=== PATIENT | male | born 1940 | race Caucasian/White ===

== ENCOUNTER 2020-01-17 09:35 | Day surgery (SDC) | payer MEDICARE ==
[~2020-01-17] VITALS: Ht 182.9 cm; Wt 75.3 kg
[~2020-01-17 09:35] MED LIST: AMOCLA875 PO; HYDACE5325 PO; LORA1; NAPR500 PO; OMEP20ER; OMEP20ER PO; RANI150 PO; RXHYD5325 PO; SLEEPING PILL; Voltaren100 GM TP
--- NOTE | 2020-01-17 12:58 | NUR ---
Patient up to Ambulate independently. Gait steady. Discharge instructions reviewed with patient. Patient verbalizes understanding. Copy given to patient to take home. PT GIVEN SCROTAL SUPPORT AND ICE PACK FOR COMFORT. Discharged via wheelchair to private car for ride home WITH FAMILY
--- NOTE | 2020-01-20 07:27 | NUR ---
01/20/20 0727 Susie Shelley VERIFICATIONS: EDIT CHART.
== END 2020-01-17 22:41 | disposition home or self-care (01) ==
LOC: ORSCMMR 09:35 → ORD 12:15 → ORSCMMR 12:15
PROVIDERS: Surgery
PROC: 0YU60JZ Supplement Left Inguinal Region with Synthetic Substitute, Open Approach (ICD-10-PCS; principal; 2020-01-17 10:00)
DX: K40.90 Unilateral inguinal hernia, without obstruction or gangrene, not specified as recurrent (principal); E78.5 Hyperlipidemia, unspecified
CPT/HCPCS: C1781; J0690; J1100; J2250; J2405; J2704; J3010; J7120

== ENCOUNTER 2020-07-24 14:56 | Emergency (ER) | payer MEDICARE ==
[~2020-07-24] VITALS: Ht 182.9 cm; Wt 77.1 kg
[2020-07-24 16:32] LABS: BASOPHILS ABSOLUTE AUTO 0.06 K/mm3 (0.00-0.23); BASOPHILS PERCENT AUTO 1 % (0-2); EOSINOPHILS ABSOLUTE AUTO 0.22 K/mm3 (0.00-0.68); EOSINOPHILS PERCENT AUTO 3 % (0-6); Hematocrit 39.9 % (37.0-53.0); Hemoglobin 13.1 g/dL (13.5-17.5); IMMATURE GRAN ABSOLUTE AUTO 0.03 K/mm3 (0.00-0.10); IMMATURE GRAN PERCENT AUTO 0 % (0-1); LYMPHOCYTES ABSOLUTE AUTO 1.65 K/mm3 (0.84-5.20); LYMPHOCYTES PERCENT AUTO 20 % (21-46); MONOCYTES ABSOLUTE AUTO 0.77 K/mm3 (0.16-1.47); MONOCYTES PERCENT AUTO 10 % (4-13); Mean Corpuscular HGB 28.9 pg (26.0-34.0); Mean Corpuscular HGB Conc 32.8 g/dL (31.5-36.5); Mean Corpuscular Volume 88 fL (80-100); Mean Platelet Volume 8.5 fL (9.1-12.4); NEUTROPHILS ABSOLUTE AUTO 5.41 K/mm3 (1.96-9.15); NEUTROPHILS PERCENT AUTO 66 % (41-73); Platelet Count 231 K/mm3 (150-400); RDW Coefficient Variation 13.3 % (11.7-14.2); RDW Standard Deviation 43.1 fL (35.1-46.3); Red Blood Cell Count 4.53 M/mm3 (4.30-5.90); White Blood Cell Count 8.14 K/mm3 (4.00-11.30)
[2020-07-24 16:51] LABS: International Normalized Ratio 1.08; Prothrombin Time Results 11.5 Sec (9.7-11.5)
[2020-07-24 16:56] LABS: Alanine Aminotransfer (ALT/SGP 17 U/L (12-78); Albumin, Blood 3.9 g/dL (3.4-5.0); Albumin/Globulin Ratio 1.1 (0.8-1.8); Alk Phos 100 U/L (50-136); Anion Gap 9 mmol/L (6-16); Aspartate Aminotrans (AST/SGOT 16 U/L (12-37); Bilirubin, Total 0.5 mg/dL (0.1-1.0); Blood Urea Nitrogen 14 mg/dL (8-24); Bun/Creatinine Ratio 13.6 (12.0-20.0); CO2, Blood 26 mmol/L (21-32); Calcium, Blood 8.6 mg/dL (8.5-10.1); Chloride, Blood 110 mmol/L (98-108); Creatinine, Blood 1.03 mg/dL (0.60-1.20); Globulin, Blood 3.5 g/dL (2.2-4.0); Glomerular Filtration Rate >60 (60-); Glucose, Blood 94 mg/dL (70-99); Potassium, Blood 3.8 mmol/L (3.5-5.5); Sodium, Blood 145 mmol/L (136-145); Total Protein, Blood 7.4 g/dL (6.4-8.2)
== END 2020-07-24 22:10 | disposition home or self-care (01) ==
LOC: ER 14:56
PROVIDERS: Physician Assistant
DX: R20.2 Paresthesia of skin (principal); Z91.81 History of falling; K21.9 Gastro-esophageal reflux disease without esophagitis; Z87.891 Personal history of nicotine dependence; Z91.040 Latex allergy status; Z91.09 Other allergy status, other than to drugs and biological substances; Z91.030 Bee allergy status; Z79.899 Other long term (current) drug therapy
CPT/HCPCS: 70450; 80053; 85025; 85610; 93005; 93010; 99284-25

== ENCOUNTER → 2022-04-27 | Outpatient (CLI) | payer MEDICARE ==
[~2022-04-27] MED LIST changes: +ASPI81CH PO; +ATOR40TA PO; +Imdur30 MG PO; +METO25ER PO
[2022-04-27 16:44] LABS: Adenovirus F 40/41 Not Detected (NOT DETECT); Astrovirus Not Detected (NOT DETECT); Campylobacter Sp Not Detected (NOT DETECT); Cryptosporidium Not Detected (NOT DETECT); Cyclospora Cayetanensis Not Detected (NOT DETECT); E. Coli O157 Not Detected (NOT DETECT); Entamoeba Histolytica Not Detected (NOT DETECT); Enteroaggregative E. coli-EAEC Not Detected (NOT DETECT); Enteropathogenic E. coli-EPEC Not Detected (NOT DETECT); Enterotoxigenic E. coli-ETEC Not Detected (NOT DETECT); Giardia Lamblia Not Detected (NOT DETECT); Norovirus GI/GII Not Detected (NOT DETECT); Plesiomonas Shigelloides Not Detected (NOT DETECT); Rotavirus A Not Detected (NOT DETECT); Salmonella Sp Not Detected (NOT DETECT); Sapovirus Not Detected (NOT DETECT); Shiga Toxin-prod E. coli-STEC Not Detected (NOT DETECT); Shigella/Enteroin E. coli-EIEC Not Detected (NOT DETECT); Vibrio Cholerae Not Detected (NOT DETECT); Vibrio Sp Not Detected (NOT DETECT); Yersinia Enterocolitica Not Detected (NOT DETECT)
== END | disposition home or self-care (01) ==
LOC: LAB SHORT 08:00
PROVIDERS: Family Medicine
DX: R15.9 Full incontinence of feces (principal); R19.7 Diarrhea, unspecified
CPT/HCPCS: 87507

== ENCOUNTER 2022-08-27 15:48 | Inpatient (IN) | payer MEDICARE ==
[~2022-08-27] VITALS: Ht 182.9 cm; Wt 67.5 kg
[~2022-08-27 15:48] MED LIST changes: -METO25ER PO; +METO50ER PO
[2022-08-27 16:31] LABS: BASOPHILS ABSOLUTE AUTO 0.01 K/mm3 (0.00-0.23); BASOPHILS PERCENT AUTO 0 % (0-2); EOSINOPHILS ABSOLUTE AUTO 0.02 K/mm3 (0.00-0.68); EOSINOPHILS PERCENT AUTO 0 % (0-6); IMMATURE GRAN ABSOLUTE AUTO 0.24 K/mm3 (0.00-0.10); IMMATURE GRAN PERCENT AUTO 2 % (0-1); LYMPHOCYTES ABSOLUTE AUTO 1.47 K/mm3 (0.84-5.20); LYMPHOCYTES PERCENT AUTO 14 % (21-46); MONOCYTES ABSOLUTE AUTO 0.58 K/mm3 (0.16-1.47); MONOCYTES PERCENT AUTO 6 % (4-13); Mean Corpuscular HGB 25.8 pg (26.0-34.0); Mean Corpuscular HGB Conc 30.4 g/dL (31.5-36.5); Mean Corpuscular Volume 85 fL (80-100); Mean Platelet Volume 9.4 fL (9.1-12.4); NEUTROPHILS ABSOLUTE AUTO 8.11 K/mm3 (1.96-9.15); NEUTROPHILS PERCENT AUTO 78 % (41-73); Platelet Count 130 K/mm3 (150-400); RDW Coefficient Variation 16.3 % (11.7-14.2); Red Blood Cell Count 1.59 M/mm3 (4.30-5.90); White Blood Cell Count 10.43 K/mm3 (4.00-11.30)
[2022-08-27 16:36] LABS: Hematocrit 13.5 % (37.0-53.0); Hemoglobin 4.1 g/dL (13.5-17.5)
[2022-08-27 16:42] LABS: Albumin, Blood 2.2 g/dL (3.4-5.0); Albumin/Globulin Ratio 1.1 (0.8-1.8); Bilirubin, Total 0.2 mg/dL (0.1-1.0); Bun/Creatinine Ratio 71.4 (12.0-20.0); Calcium, Blood 7.5 mg/dL (8.5-10.1); Creatinine, Blood 1.19 mg/dL (0.60-1.20); Potassium, Blood 4.9 mmol/L (3.5-5.5); Total Protein, Blood 4.2 g/dL (6.4-8.2)
[2022-08-27 18:27] LABS: International Normalized Ratio 1.37; Prothrombin Time Results 14.1 Sec (9.7-11.5)
[2022-08-27 21:06] LABS: PCO2 Venous 22.8 mmHg (38-42)
[2022-08-27 21:07] LABS: Base Excess Venous -17.2 mmol/L
[2022-08-27 21:09] LABS: pH Blood Venous 7.25 (7.34-7.37)
[2022-08-27 21:24] LABS: BASOPHILS ABSOLUTE AUTO 0.01 K/mm3 (0.00-0.23); BASOPHILS PERCENT AUTO 0 % (0-2); EOSINOPHILS PERCENT AUTO 0 % (0-6); IMMATURE GRAN ABSOLUTE AUTO 0.22 K/mm3 (0.00-0.10); IMMATURE GRAN PERCENT AUTO 2 % (0-1); LYMPHOCYTES ABSOLUTE AUTO 0.94 K/mm3 (0.84-5.20); LYMPHOCYTES PERCENT AUTO 9 % (21-46); MONOCYTES ABSOLUTE AUTO 0.54 K/mm3 (0.16-1.47); MONOCYTES PERCENT AUTO 5 % (4-13); Mean Corpuscular HGB 26.5 pg (26.0-34.0); Mean Corpuscular HGB Conc 31.3 g/dL (31.5-36.5); Mean Corpuscular Volume 85 fL (80-100); Mean Platelet Volume 9.6 fL (9.1-12.4); NEUTROPHILS ABSOLUTE AUTO 9.11 K/mm3 (1.96-9.15); NEUTROPHILS PERCENT AUTO 84 % (41-73); Platelet Count 127 K/mm3 (150-400); RDW Coefficient Variation 16.8 % (11.7-14.2); RDW Standard Deviation 51.8 fL (35.1-46.3); Red Blood Cell Count 1.89 M/mm3 (4.30-5.90); White Blood Cell Count 10.82 K/mm3 (4.00-11.30)
[2022-08-27 23:59] LABS: BASOPHILS ABSOLUTE AUTO 0.01 K/mm3 (0.00-0.23); BASOPHILS PERCENT AUTO 0 % (0-2); EOSINOPHILS ABSOLUTE AUTO 0.01 K/mm3 (0.00-0.68); EOSINOPHILS PERCENT AUTO 0 % (0-6); Hematocrit 20.7 % (37.0-53.0); Hemoglobin 6.9 g/dL (13.5-17.5); IMMATURE GRAN ABSOLUTE AUTO 0.21 K/mm3 (0.00-0.10); IMMATURE GRAN PERCENT AUTO 2 % (0-1); LYMPHOCYTES ABSOLUTE AUTO 1.55 K/mm3 (0.84-5.20); LYMPHOCYTES PERCENT AUTO 13 % (21-46); MONOCYTES ABSOLUTE AUTO 0.86 K/mm3 (0.16-1.47); MONOCYTES PERCENT AUTO 7 % (4-13); Mean Corpuscular HGB 27.4 pg (26.0-34.0); Mean Corpuscular HGB Conc 33.3 g/dL (31.5-36.5); Mean Corpuscular Volume 82 fL (80-100); NEUTROPHILS ABSOLUTE AUTO 9.14 K/mm3 (1.96-9.15); NEUTROPHILS PERCENT AUTO 78 % (41-73); Platelet Count 126 K/mm3 (150-400); RDW Coefficient Variation 15.5 % (11.7-14.2); RDW Standard Deviation 45.3 fL (35.1-46.3); Red Blood Cell Count 2.52 M/mm3 (4.30-5.90); White Blood Cell Count 11.78 K/mm3 (4.00-11.30)
[2022-08-28 05:33] LABS: Hematocrit 21.1 % (37.0-53.0); Hemoglobin 7.1 g/dL (13.5-17.5); Mean Corpuscular HGB 26.8 pg (26.0-34.0); Mean Corpuscular HGB Conc 33.6 g/dL (31.5-36.5); Mean Corpuscular Volume 80 fL (80-100); Mean Platelet Volume 9.1 fL (9.1-12.4); Platelet Count 145 K/mm3 (150-400); RDW Coefficient Variation 15.7 % (11.7-14.2); RDW Standard Deviation 44.6 fL (35.1-46.3); Red Blood Cell Count 2.65 M/mm3 (4.30-5.90); White Blood Cell Count 13.92 K/mm3 (4.00-11.30)
[2022-08-28 05:52] LABS: Bun/Creatinine Ratio 55.9 (12.0-20.0); Calcium, Blood 7.6 mg/dL (8.5-10.1); Creatinine, Blood 1.45 mg/dL (0.60-1.20); Potassium, Blood 4.7 mmol/L (3.5-5.5)
[2022-08-28 09:37] LABS: Base Excess Venous -11.5 mmol/L; Bicarbonate Venous 16.1 mmol/L (24.0-30.0); PCO2 Venous 24.8 mmHg (38-42); pH Blood Venous 7.36 (7.34-7.37)
[2022-08-28 11:35] LABS: Hematocrit 20.9 % (37.0-53.0); Hemoglobin 7.2 g/dL (13.5-17.5)
[2022-08-28 17:18] LABS: Hematocrit 19.4 % (37.0-53.0); Hemoglobin 6.6 g/dL (13.5-17.5)
--- NOTE | 2022-08-28 19:32 | NUR ---
PATIENT ARRIVED TO ICU 15 VIA GURNEY FROM ER HOLD. PATIENT SLEEPING WITH OCCASIONAL SNORE, AWAKENS TO SLIGHT STIMULI, ABLE TO ANSWER SIMPLE QUESTIONS, AWARE OF BEING IN THE HOSPITAL, BUT THINKING HE IS IN [place], AND THINKING IT IS 1983. PRECEDEX 0.6 MCG INFUSING. FIRST OF 2 UNITS PRBC'S INFUSING. PROTONIX DRIP RESTARTED.
--- NOTE | 2022-08-28 20:00 | NUR ---
PATIENT REMOVING BIPAP ABLE TO STAND AT BEDSIDE. VERBALIZED THAT WHEN HE COUGHS THE MUCUS IS SO THICK THAT IT MAKES IT FEEL LIKE HE IS CHOKING, ABLE TO PRODUCE SMALL WHITE SPUTUM. OXYGEN 3L/NC IN PLACE WHEN OFF BIPAP 20/12 FIO2 40%
[2022-08-29 02:18] LABS: Hematocrit 25.9 % (37.0-53.0); Hemoglobin 8.9 g/dL (13.5-17.5)
--- NOTE | 2022-08-29 02:44 | NUR ---
PATIENT RESTLESS AT TIMES, FREQUENT REQUEST FOR SOMETHING TO DRINK. JANE WATER WITH ASSIST WELL. ATTENDS IN PLACE BUT ABLE TO USE URINAL WITH ASSISTANCE. ATTEMPTED TO PLACE CONDOM CATH, BUT IT DIDN'T STAY IN PLACE. PRECEDEX 0.6 MCG CONTINUES TO HELP PATIENT REMAIN CALM
--- NOTE | 2022-08-29 03:29 | NUR ---
PATIENT SLEEPING THAN WAKING UP YELLING OUT AND FEARFUL, AUDIBLE WHEEZES. C/O DRY MOUTH AND WANTING SOMETHING TO DRINK. AFTER HAVING A FEW SIPS OF WATER AND ICE CHIPS, NO LONGER WHEEZING LUNG SOUNDS REMAIN CLEAR BIOX 95-99% ON RA. ONCE PATIENT CALM AUDIBLE WHEEZES GONE. PRECEDEX DECREASED TO 0.2 MCG TO ASSESS IF THAT WILL HELP PATIENT WITH WAKING UP IN A PANIC.
[2022-08-29 05:20] LABS: BASOPHILS ABSOLUTE AUTO 0.02 K/mm3 (0.00-0.23); BASOPHILS PERCENT AUTO 0 % (0-2); EOSINOPHILS ABSOLUTE AUTO 0.02 K/mm3 (0.00-0.68); EOSINOPHILS PERCENT AUTO 0 % (0-6); Hematocrit 25.8 % (37.0-53.0); IMMATURE GRAN PERCENT AUTO 2 % (0-1); LYMPHOCYTES ABSOLUTE AUTO 0.74 K/mm3 (0.84-5.20); LYMPHOCYTES PERCENT AUTO 7 % (21-46); MONOCYTES ABSOLUTE AUTO 0.91 K/mm3 (0.16-1.47); MONOCYTES PERCENT AUTO 8 % (4-13); Mean Corpuscular HGB 28.4 pg (26.0-34.0); Mean Corpuscular HGB Conc 34.9 g/dL (31.5-36.5); Mean Corpuscular Volume 81 fL (80-100); Mean Platelet Volume 8.8 fL (9.1-12.4); NEUTROPHILS ABSOLUTE AUTO 8.94 K/mm3 (1.96-9.15); NEUTROPHILS PERCENT AUTO 83 % (41-73); NRBC ABSOLUTE 0.03 K/mm3 (0.00-0.02); NRBC Auto 0.3 /100 WBC (0.0-0.2); Platelet Count 119 K/mm3 (150-400); RDW Standard Deviation 46.5 fL (35.1-46.3); Red Blood Cell Count 3.17 M/mm3 (4.30-5.90); White Blood Cell Count 10.83 K/mm3 (4.00-11.30)
[2022-08-29 05:39] LABS: Albumin, Blood 2.6 g/dL (3.4-5.0); Bilirubin, Total 1.6 mg/dL (0.1-1.0); Bun/Creatinine Ratio 43.8 (12.0-20.0); Calcium, Blood 7.5 mg/dL (8.5-10.1); Creatinine, Blood 1.05 mg/dL (0.60-1.20); Globulin, Blood 2.5 g/dL (2.2-4.0); Potassium, Blood 3.6 mmol/L (3.5-5.5); Total Protein, Blood 5.1 g/dL (6.4-8.2)
--- NOTE | 2022-08-29 06:02 | NUR ---
PATIENT VERBALIZED THAT HE IS FEELING FAINT AND SOB. BIOX CONTINUES 96% ON RA. NEEDING REASSURANCE AND PRECEDEX TITRATED OFF. PATIENT VERBALIZED FAINT FEELING IS NOW GONE. PATIENT CONTINUES TO BE FORGETFUL AND SPONTANEOUS.
--- NOTE | 2022-08-29 07:21 | NUR ---
SUMMARY PATIENT CONTINUES TO BE IMPULSIVE AND CONFUSED. ASKING FOR SOMETHING TO DRINK FREQUENTLY T/O NIGHT. PRECEDEX TITRATED OFF THIS MORNING, APPEARS TO HAVE HELPED WITH PATIENT WAKING UP IN FEAR. PATIENT WATER WELL, SWITCHED TO ICE CHIPS AFTER MIDNIGHT DUE TO POSSIBILITY OF UPPER GI TODAY. PATIENT GIVEN 2 UNITS PRBC LAST NIGHT. H&H REMAINING STABLE THIS MORNING. NO BM AND NO NAUSEA T/O NIGHT.
--- NOTE | 2022-08-29 08:00 | NUR ---
PT IS AWAKE AND ALERT, BUT ANXIOUS AND DISORIENTED. PT ATTEMPTING TO GET OOB AND PULLING ON LINES AND TUBES. PRECEDEX DRIP RE-STARTED @ 0730. TITRATED UP TO 0.6 MCG/KG/MIN. TEMP 99.7. ECG SHOWS UNDERLYING AFIB-PACER TO LEFT CHEST WALL-RHYTHM OCCASIONALLY PACED. MURMUR AUSCULTATED. PT DENIES CP. NO NOTED SOB. LUNGS DIMINISHED IN THE BASES. SATS>90% ON RA. PT DENIES NAUSEA AND IS TOLERATED SIPS OF CLEAR LIQUIDS WITHOUT DIFFICULTY. NO BM THIS AM. ATTENDS C/D/I. PT HAS SCATTERED BRUISES TO BOTH UPPER EXTREMITIES-LEFT ARM WITH DOT/FOAM DRESSING X 3 C/D/I. PT PEACE CONTACTED AND GIVEN UPDATE.
[2022-08-29 08:49] LABS: Source, Urine Foley catheter
[2022-08-29 09:23] LABS: Appearance, Urine Clear (Clear); Bilirubin, Urine Neg (Neg); Blood, Urine Neg (Neg); Color, Urine Yellow (P-Yellow); Glucose Qualitative, Urine Neg (Neg); Ketones, Urine Neg (Neg); Leukocyte Esterase, Urine Neg (Neg); Nitrite, Urine Neg (Neg); Protein, Urine 2+ (Neg); Urobilinogen, Urine NORM (Normal)
[2022-08-29 10:17] LABS: Bacteria Few /hpf; Red Blood Cells, Urine 0-2 /hpf (0-2); Squamous Epithelial Cells Not Seen /hpf (Few); White Blood Cells, Urine 0-2 /hpf (0-5)
--- NOTE | 2022-08-29 12:00 | NUR ---
PT EXTREMELY RESTLESS AND AGITATED DESPITE PRECEDEX @ 1.4 MCG/KG/MIN. PT PULLING ON LINES AND TUBES AND KICKING HIS LEGS OUT OF THE BED. UNABLE TO RE-ORIENT PT. EDITOR PRODUCER AT BEDSIDE FOR PT SAFETY. DR. MEDELLIN UPDATED-PT MED WITH ZYPREXA 10 MG IM X1-SEE EMAR.
--- NOTE | 2022-08-29 14:00 | NUR ---
PT RESTING QUIETLY WHEN NOT DISTURBED ON PRECEDEX @ 1.4 MCG/KG/MIN. SHANDA CARE DONE, GUPTA CHANGED, AND PT POSITIONED TO COMFORT ON RIGHT SIDE. NPO FOR EGD LATER TODAY.
--- NOTE | 2022-08-29 16:30 | NUR ---
08/29/22 1630 Nida Daniels ANSETHESIA PROVIDED BY DR. WILLS, SEE HIS RECORD FOR SEDATION.
--- NOTE | 2022-08-29 17:15 | NUR ---
EGD COMPLETE. NO ACUTE BLEED FOUND. PROCEDURE DONE WITH MAC-PT RECEIVED 210 MG OF PROPOFOL AND 300 CC LR. PT IS DIFFICULT TO AROUSE-PRECEDEX DRIP DECREASED TO 0.4 MCG/KG/MIN. SATS DOWN TO 88% ON RA. POM MASK PLACED TO MONITOR CO2-SATS >90% ON 3 LITERS NASAL CANULA. ECG SHOWS ATIRAL PACED RHYTHM-UNDERLYING RHYTHM AFIB. SBP 120'S. SOLIMAN WITH 500 CC URINE OUTPUT THIS SHIFT.
[2022-08-30 05:52] LABS: BASOPHILS ABSOLUTE AUTO 0.03 K/mm3 (0.00-0.23); BASOPHILS PERCENT AUTO 0 % (0-2); EOSINOPHILS ABSOLUTE AUTO 0.11 K/mm3 (0.00-0.68); EOSINOPHILS PERCENT AUTO 2 % (0-6); IMMATURE GRAN PERCENT AUTO 1 % (0-1); LYMPHOCYTES ABSOLUTE AUTO 0.99 K/mm3 (0.84-5.20); LYMPHOCYTES PERCENT AUTO 14 % (21-46); MONOCYTES ABSOLUTE AUTO 0.76 K/mm3 (0.16-1.47); MONOCYTES PERCENT AUTO 11 % (4-13); Mean Corpuscular HGB Conc 33.3 g/dL (31.5-36.5); Mean Corpuscular Volume 84 fL (80-100); Mean Platelet Volume 9.4 fL (9.1-12.4); NEUTROPHILS ABSOLUTE AUTO 5.05 K/mm3 (1.96-9.15); NEUTROPHILS PERCENT AUTO 72 % (41-73); NRBC ABSOLUTE 0.02 K/mm3 (0.00-0.02); NRBC Auto 0.3 /100 WBC (0.0-0.2); Platelet Count 116 K/mm3 (150-400); RDW Coefficient Variation 16.8 % (11.7-14.2); RDW Standard Deviation 49.4 fL (35.1-46.3); Red Blood Cell Count 2.86 M/mm3 (4.30-5.90); White Blood Cell Count 7.04 K/mm3 (4.00-11.30)
[2022-08-30 06:15] LABS: Albumin, Blood 2.3 g/dL (3.4-5.0); Anion Gap 8 mmol/L (6-16); Blood Urea Nitrogen 24 mg/dL (8-24); Bun/Creatinine Ratio 23.3 (12.0-20.0); CO2, Blood 18 mmol/L (21-32); Calcium, Blood 7.5 mg/dL (8.5-10.1); Chloride, Blood 122 mmol/L (98-108); Creatinine, Blood 1.03 mg/dL (0.60-1.20); Glomerular Filtration Rate 73 (60-); Glucose, Blood 110 mg/dL (70-99); Phosphorus, Blood 2.6 mg/dL (2.5-4.9); Potassium, Blood 3.3 mmol/L (3.5-5.5); Sodium, Blood 148 mmol/L (136-145)
--- NOTE | 2022-08-30 06:33 | NUR ---
PATIENT ONLY ORIENTED TO SELF. VERY FORGETFUL DESPITE FREQUENT REORIENTATION. PRECEDEX WAS TURNED OFF FOR 4 HOURS OVER NIGHT, HOWEVER PATIENT BECAME INCREASINGLY AGITATED AND REQUIRED IT TO BE TURNED BACK ON. PT IN AFIB AND INTERMITTENTLY PACED. BP STABLE. ROOM AIR. SOLIMAN IN PLACE WITH ADEQUATE URINE OUTPUT.
--- NOTE | 2022-08-30 07:25 | NUR ---
ASSUMED CARE / DR MEDELLIN: REPORT RECEIVED FROM ZEESHAN Reyes RN. ASSUMED CARE OF THIS PT AT APPROX 0700. ON ASSESSMENT, THE PT IS RESTING QUIETLY. HE AWAKENS TO MINIMAL STIMULUS & IS ORIENTED ONLY TO SELF AT THAT TIME. BILAT SOFT WRIST RESTRAINTS IN PLACE TO PREVENT PULLING OF LINES/ TUBES FOR THIS PT. LS ARE CLEAR, DIM IN BASES. PT ON RA W/ O2 SATS > 92%. MONITOR SHOWS INTERMITTENTLY V-PACED RHYTHM W/ HR 80-90s, BP STABLE. NO BM SINCE ADMIT. SOLIMAN IN PLACE, PATENT/ DRAINING YELLOW URINE. SKIN CONDITION OVERALL FRAGILE, INTACT. Q2H REPOSITIONING TO MAINTAIN SKIN INTEGRITY. DR MEDELLIN HAS BEEN AT BEDSIDE THIS AM TO EVAL THIS PT. ORDERS CLARIFIED FOR POTASSIUM REPLETION. HE WOULD LIKE TO CHANGE THIS PT TO PCU STATUS IF PRECEDEX CAN BE TITRATED OFF TODAY W/ USE OF PO MEDS ORDERED. WILL CONTINUE TO MONITOR & UPDATE NEEDED.
--- NOTE | 2022-08-30 11:20 | NUR ---
DR MEDELLIN: PROVIDER HAS COME TO BEDSIDE & PROVIDED THE PT's & SON W/ AN UPDATE. HE WOULD LIKE THIS RN TO CONTINUE TITRATING PRECEDEX DOWN/ OFF. HS DOSE OF SEROQUEL HAS BEEN INCREASED WELL. NO OTHER CHANGES AT THIS TIME.
--- NOTE | 2022-08-30 13:21 | NUR ---
Assumed care of Pt. Pt appears to be sleeping, resp even and unlabored. at bedside. Wrist restraints in place. Bed alarm on. Call light in reach. Will monitor.
--- NOTE | 2022-08-30 17:57 | NUR ---
SHIFT SUMMARY: Since assumption of care Pt has been sleeping comfortably. Does wake to verbal stimulus and assist with repositioning. Follows most commands. Oriented to self only. VSS. IVF running per orders. Campo cath draining clear, yellow urine. Will report to night RN. Stable at this time.
--- NOTE | 2022-08-31 05:42 | NUR ---
REPORT GIVEN TO ADAM ACOSTA, FOR TRANSFER OF PATIENT TO PCU 9.
--- NOTE | 2022-08-31 06:30 | NUR ---
Patient arrived to PCU 9 from ICU 15. A/O to self and place only, cooperative with care. VSS on RA. Afib V paced rhythm in 80's. Skin tears noted on L arm. Will report to dayshift RN.
[2022-08-31 09:46] LABS: BASOPHILS ABSOLUTE AUTO 0.03 K/mm3 (0.00-0.23); BASOPHILS PERCENT AUTO 0 % (0-2); EOSINOPHILS ABSOLUTE AUTO 0.23 K/mm3 (0.00-0.68); EOSINOPHILS PERCENT AUTO 3 % (0-6); Hematocrit 27.1 % (37.0-53.0); Hemoglobin 8.7 g/dL (13.5-17.5); IMMATURE GRAN ABSOLUTE AUTO 0.11 K/mm3 (0.00-0.10); IMMATURE GRAN PERCENT AUTO 2 % (0-1); LYMPHOCYTES ABSOLUTE AUTO 0.92 K/mm3 (0.84-5.20); LYMPHOCYTES PERCENT AUTO 13 % (21-46); MONOCYTES ABSOLUTE AUTO 0.68 K/mm3 (0.16-1.47); MONOCYTES PERCENT AUTO 10 % (4-13); Mean Corpuscular HGB 28.2 pg (26.0-34.0); Mean Corpuscular HGB Conc 32.1 g/dL (31.5-36.5); Mean Corpuscular Volume 88 fL (80-100); Mean Platelet Volume 9.1 fL (9.1-12.4); NEUTROPHILS ABSOLUTE AUTO 4.97 K/mm3 (1.96-9.15); NEUTROPHILS PERCENT AUTO 72 % (41-73); Platelet Count 138 K/mm3 (150-400); Red Blood Cell Count 3.09 M/mm3 (4.30-5.90); White Blood Cell Count 6.94 K/mm3 (4.00-11.30)
[2022-08-31 10:08] LABS: Albumin, Blood 2.4 g/dL (3.4-5.0); Anion Gap 7 mmol/L (6-16); Blood Urea Nitrogen 20 mg/dL (8-24); Bun/Creatinine Ratio 19.8 (12.0-20.0); CO2, Blood 18 mmol/L (21-32); Calcium, Blood 7.6 mg/dL (8.5-10.1); Chloride, Blood 119 mmol/L (98-108); Creatinine, Blood 1.01 mg/dL (0.60-1.20); Glomerular Filtration Rate 75 (60-); Glucose, Blood 95 mg/dL (70-99); Magnesium, Blood 1.8 mg/dL (1.6-2.4); Phosphorus, Blood 3.3 mg/dL (2.5-4.9); Potassium, Blood 3.4 mmol/L (3.5-5.5); Sodium, Blood 144 mmol/L (136-145)
--- NOTE | 2022-08-31 18:16 | NUR ---
PT SUMMARY: NO ACUTE CHANGE FOR THE SHIFT. VITALS REMAINED STABLE. PT WAS ABLE TO WORK WITH PT/OT FOR THE SHIFT PT AMBULATED 1PA VIA WALKER, PT HAS BEEN AMBULATING TO THE BATHROOM FOR TOILETING. PT STILL HAS SOME CONFUSION, FORGETFULNESS. PT HAD 2 BMS FOR THE SHIFT BLACK BROWN LOOSE STOOLS. PT STILL ON CLEAR LIQUID DIET. PT HAS BEEN UP IN THE CHAIR MOST OF THE SHIFT FAMILY AT BEDSIDE SINCE LUNCH TIME AND MORE VISITORS BY THE END OF THE SHIFT. NO OTHER CONCERNS AT THIS TIME, WILL REPORT TO ONCOMING SHIFT
[2022-09-01 04:29] LABS: BASOPHILS ABSOLUTE AUTO 0.02 K/mm3 (0.00-0.23); BASOPHILS PERCENT AUTO 0 % (0-2); EOSINOPHILS PERCENT AUTO 3 % (0-6); Hematocrit 26.4 % (37.0-53.0); Hemoglobin 8.6 g/dL (13.5-17.5); IMMATURE GRAN ABSOLUTE AUTO 0.09 K/mm3 (0.00-0.10); IMMATURE GRAN PERCENT AUTO 1 % (0-1); LYMPHOCYTES PERCENT AUTO 22 % (21-46); MONOCYTES ABSOLUTE AUTO 0.84 K/mm3 (0.16-1.47); MONOCYTES PERCENT AUTO 12 % (4-13); Mean Corpuscular HGB 28.2 pg (26.0-34.0); Mean Corpuscular HGB Conc 32.6 g/dL (31.5-36.5); Mean Corpuscular Volume 87 fL (80-100); Mean Platelet Volume 9.2 fL (9.1-12.4); NEUTROPHILS ABSOLUTE AUTO 4.58 K/mm3 (1.96-9.15); NEUTROPHILS PERCENT AUTO 63 % (41-73); Platelet Count 139 K/mm3 (150-400); RDW Coefficient Variation 17.4 % (11.7-14.2); Red Blood Cell Count 3.05 M/mm3 (4.30-5.90); White Blood Cell Count 7.33 K/mm3 (4.00-11.30)
[2022-09-01 04:55] LABS: Bun/Creatinine Ratio 15.4 (12.0-20.0); Calcium, Blood 7.8 mg/dL (8.5-10.1); Creatinine, Blood 1.04 mg/dL (0.60-1.20); Potassium, Blood 3.7 mmol/L (3.5-5.5)
--- NOTE | 2022-09-01 05:38 | NUR ---
Patient is A/O to self and person only. Patient is having visual/auditory hallucinations and attempts oob and sometimes able to be redirected. At one point patient became very agitated when attempting oob that he began to grab at the SCD machine at foot of bed, only able to grab the attachments and began throwing them at this RN. VSS. Patient has not slept all night. Will report to dayshift RN.
--- NOTE | 2022-09-01 18:11 | NUR ---
SHIFT SUMMARY: PT A/O TO SELF, COOPERATIVE AND PLEASANT MOST OF THE TIME. PT HAD ONE EPISODE THIS MORNING APPROX 1100 WHERE HE WAS NOT ABLE TO BE CALMLY REDIRECTED WHILE HE WAS ATTEMPTING TO GET UP STATING "I NEED TO GO WALK MY DOGS." PT WAS UNABLETO BE REDIRECTED BY 3+ RN'S AND BECAME COMBATIVE AND WAS VERY UNSTEADY ON HIS FEET. PRN ZYPREXA GIVEN AND PT WAS ABLE TO BE REDIRECTED AND CALM WITH CARE. PT WAS VERY RESTLESS THROUGHOUT THE DAY DESPITE PRN SEROQUEL AND ZYPREXA GIVEN. HE DID NOT SLEEP. PT WAS AMBULATED IN [place] AND HE WAS ABLE TO AMBULATE TO 2ND FLOOR LOBBY AND BACK WITH GB AND WALKER AND WAS STEADY ON FEET BUT NEEDED FREQUENT REDIRECTION. PT SOLIMAN WAS REMOVED THIS AM AND PT HAS BEEN INCONTINENT SINCE REMOVAL. BLADDER SCAN COMPLETED AND PVR WAS 100 MLS. PT EATING AND TOLERATING FULL LIQUID DIET. PT ATE CRACKERS AND CHEESE WITH DINNER. WILL ADVANCE DIET TO REGULAR DIET TO BEGIN IN THE MORNING.
[2022-09-02 05:32] LABS: BASOPHILS ABSOLUTE AUTO 0.04 K/mm3 (0.00-0.23); BASOPHILS PERCENT AUTO 1 % (0-2); EOSINOPHILS PERCENT AUTO 4 % (0-6); Hematocrit 25.9 % (37.0-53.0); Hemoglobin 8.5 g/dL (13.5-17.5); IMMATURE GRAN ABSOLUTE AUTO 0.11 K/mm3 (0.00-0.10); IMMATURE GRAN PERCENT AUTO 2 % (0-1); LYMPHOCYTES ABSOLUTE AUTO 0.85 K/mm3 (0.84-5.20); LYMPHOCYTES PERCENT AUTO 12 % (21-46); MONOCYTES ABSOLUTE AUTO 0.79 K/mm3 (0.16-1.47); MONOCYTES PERCENT AUTO 11 % (4-13); Mean Corpuscular HGB Conc 32.8 g/dL (31.5-36.5); Mean Corpuscular Volume 85 fL (80-100); Mean Platelet Volume 8.8 fL (9.1-12.4); NEUTROPHILS ABSOLUTE AUTO 5.22 K/mm3 (1.96-9.15); NEUTROPHILS PERCENT AUTO 72 % (41-73); Platelet Count 176 K/mm3 (150-400); RDW Coefficient Variation 17.2 % (11.7-14.2); RDW Standard Deviation 52.3 fL (35.1-46.3); Red Blood Cell Count 3.04 M/mm3 (4.30-5.90); White Blood Cell Count 7.31 K/mm3 (4.00-11.30)
--- NOTE | 2022-09-02 05:37 | NUR ---
Patient is still only A/O to self and person. Patient has not slept in 2 days, resident contacted and came to see patient x2. Head CT ordered and one time order given. Patient is increasingly less redirectable and more agitated with both auditory and visual hallucinations and hitting at staff. Patient was put in wheelchair and driven around hospital, and kept at nurses station in attempt to "wear the patient out" with no success. Condom cath draining a good amount of clear/yellow urine. VSS.
[2022-09-02 05:47] LABS: Albumin, Blood 2.6 g/dL (3.4-5.0); Anion Gap 9 mmol/L (6-16); Blood Urea Nitrogen 15 mg/dL (8-24); Bun/Creatinine Ratio 14.6 (12.0-20.0); CO2, Blood 19 mmol/L (21-32); Chloride, Blood 115 mmol/L (98-108); Creatinine, Blood 1.03 mg/dL (0.60-1.20); Glomerular Filtration Rate 73 (60-); Glucose, Blood 112 mg/dL (70-99); Phosphorus, Blood 3.5 mg/dL (2.5-4.9); Potassium, Blood 3.9 mmol/L (3.5-5.5); Sodium, Blood 143 mmol/L (136-145)
--- NOTE | 2022-09-02 06:19 | NUR ---
Patient more agitated and kicking/punching staff for not allowing him to get up and get imaginary items in the room. Patient having more auditory/visual hallucinations and not redirectable. Order obtained for SWR and applied, patient is now sleeping.
--- NOTE | 2022-09-02 07:47 | NUR ---
PER DR. MEDELLIN THIS AM, ALLOW PT TO SLEEP LONG POSSIBLE AND OK TO HOLD OFF ON MEDICATIONS AND VITALS UNTIL PT IS AWAKE. PER REPORT FROM RN PT HAS NOT SLEPT IN 3+ DAYS.
--- NOTE | 2022-09-02 17:24 | NUR ---
PT ORIENTED TO SELF AND PERSON ONLY - IN ROOM FREQUENTLY THROUGHOUT THE DAY. PT TRANSITIONED TO VEST ONLY INSTEAD OF SOFT WRIST RESTRAINTS FOR PATIENT SAFETY EXITING BED. WHEN AWAKE PT SWINGING LEGS OVER SIDE OF BED, PULLING AT BLANKETS. BUSY BELT GIVEN, FAMILY ABLE TO REDIRECT ON OCCASION. PT SLEPT WELL INBETWEEN CARES. ON RA. VSS PER PT TREND. CONDOM CATHETER IN PLACE. WILL PASS ON TO NOC RN
--- NOTE | 2022-09-03 06:07 | NUR ---
SHIFT SUMMARY A/O TO SELF ONLY, PLEASANTLY CONFUSED AT THIS TIME. INCONT, ATTENDS AND CONDOM CATH IN PLACE. DENIES PAIN OR SOB. VSS, NO ACUTE CHANGES AT THIS TIME. BED IN LOWEST POSITION WITH CALL LIGHT IN REACH. WILL CONTINUE TO MONITOR AND REPORT TO ONCOMING RN.
[2022-09-03 08:33] LABS: BASOPHILS ABSOLUTE AUTO 0.04 K/mm3 (0.00-0.23); BASOPHILS PERCENT AUTO 0 % (0-2); EOSINOPHILS PERCENT AUTO 3 % (0-6); Hematocrit 27.6 % (37.0-53.0); IMMATURE GRAN ABSOLUTE AUTO 0.11 K/mm3 (0.00-0.10); IMMATURE GRAN PERCENT AUTO 1 % (0-1); LYMPHOCYTES ABSOLUTE AUTO 1.17 K/mm3 (0.84-5.20); LYMPHOCYTES PERCENT AUTO 13 % (21-46); MONOCYTES ABSOLUTE AUTO 0.75 K/mm3 (0.16-1.47); MONOCYTES PERCENT AUTO 8 % (4-13); Mean Corpuscular HGB 28.4 pg (26.0-34.0); Mean Corpuscular HGB Conc 32.6 g/dL (31.5-36.5); Mean Corpuscular Volume 87 fL (80-100); Mean Platelet Volume 9.4 fL (9.1-12.4); NEUTROPHILS ABSOLUTE AUTO 6.81 K/mm3 (1.96-9.15); NEUTROPHILS PERCENT AUTO 74 % (41-73); Platelet Count 190 K/mm3 (150-400); RDW Coefficient Variation 17.1 % (11.7-14.2); RDW Standard Deviation 52.8 fL (35.1-46.3); Red Blood Cell Count 3.17 M/mm3 (4.30-5.90); White Blood Cell Count 9.18 K/mm3 (4.00-11.30)
--- NOTE | 2022-09-03 23:43 | NUR ---
PATIENT CONTINUING TO TRY TO GET OOB DESPITE FREQUENT REORIENTATION AND REDIRECTION. CURRENTLY INCONSOLABLE. STATED THAT HE WILL "PUNCH YOU RIGHT BETWEEN THE EYES HARD I CAN" TO RN AND WORKFORCE CONSULTANT. THEN HE PROCEEDED TO SWING HIS ARMS MULTIPLE TIMES TOWARDS STAFF. CHARGE NURSE PRESENT AT THIS TIME. ABLE TO GET PATIENT BACK INTO BED AND BILATERAL SOFT WRIST RESTRAINTS APPLIED. PRN SEROQUEL AND ZYPREXA ALSO GIVEN JUST PRIOR TO THIS EVENT. NOTIFIED. BED ALARM ON.
[2022-09-04 04:09] LABS: BASOPHILS ABSOLUTE AUTO 0.05 K/mm3 (0.00-0.23); BASOPHILS PERCENT AUTO 1 % (0-2); EOSINOPHILS ABSOLUTE AUTO 0.23 K/mm3 (0.00-0.68); EOSINOPHILS PERCENT AUTO 2 % (0-6); Hematocrit 30.2 % (37.0-53.0); Hemoglobin 9.7 g/dL (13.5-17.5); IMMATURE GRAN ABSOLUTE AUTO 0.14 K/mm3 (0.00-0.10); IMMATURE GRAN PERCENT AUTO 1 % (0-1); LYMPHOCYTES ABSOLUTE AUTO 1.56 K/mm3 (0.84-5.20); LYMPHOCYTES PERCENT AUTO 16 % (21-46); MONOCYTES ABSOLUTE AUTO 0.99 K/mm3 (0.16-1.47); MONOCYTES PERCENT AUTO 10 % (4-13); Mean Corpuscular HGB 27.9 pg (26.0-34.0); Mean Corpuscular HGB Conc 32.1 g/dL (31.5-36.5); Mean Corpuscular Volume 87 fL (80-100); NEUTROPHILS ABSOLUTE AUTO 6.72 K/mm3 (1.96-9.15); NEUTROPHILS PERCENT AUTO 69 % (41-73); Platelet Count 205 K/mm3 (150-400); RDW Coefficient Variation 16.8 % (11.7-14.2); RDW Standard Deviation 51.8 fL (35.1-46.3); Red Blood Cell Count 3.48 M/mm3 (4.30-5.90); White Blood Cell Count 9.69 K/mm3 (4.00-11.30)
[2022-09-04 04:26] LABS: Albumin, Blood 2.5 g/dL (3.4-5.0); Anion Gap 6 mmol/L (6-16); Blood Urea Nitrogen 14 mg/dL (8-24); Bun/Creatinine Ratio 12.7 (12.0-20.0); CO2, Blood 22 mmol/L (21-32); Calcium, Blood 8.2 mg/dL (8.5-10.1); Chloride, Blood 116 mmol/L (98-108); Glomerular Filtration Rate 68 (60-); Glucose, Blood 111 mg/dL (70-99); Potassium, Blood 4.1 mmol/L (3.5-5.5); Sodium, Blood 144 mmol/L (136-145)
--- NOTE | 2022-09-04 06:01 | NUR ---
SHIFT SUMMARY: NEURO: PATIENT BECAME BELLIGERENT AND WAS UNABLE TO BE CONSOLED. CURSING AT RNS AND STAFF AND SWINGING FISTS AT STAFF. PLACED IN BILATERAL SOFT WRIST RESTRAINTS. PRN SEROQUEL AND ZYPREXA GIVEN WITH NO IMPROVEMENT. ONE TIME DOSE OF 1MG ATIVAN GIVEN AND PATIENT HAS CALMED SINCE BUT IS STILL CONFUSED AND MUMBLING SPEECH INCOHERENTLY. UNABLE TO TAKE PO MEDS THIS AM. SWITCHED PPI TO IV BID. CONDOM CATH IN PLACE, SECURED, DRAINING. V-PACED WITH QTC 480.
--- NOTE | 2022-09-04 17:25 | NUR ---
SHIFT SUMMARY; ASSUMED CARE AT 0700. ORIENTED TO SELF ONLY. BILATERAL WRIST RESTRAINTS, UNABLE TO REDIRECT DURING SHIFT. DOES NOT ANSWER QUESTIONS. MUMBLES AND IS AGITATED AT TIMES, REACHES IN AIR FOR OBJECTS THAT ARE NOT THERE. SEROQUEL GIVEN WITH MINIMAL EFFECTIVNESS. PO FOOD AND LIQUIDS OFFERED AND REFUSED BY PT. SPOUSE AT BEDSIDE DURING SHIFT. REPOSITIONED FREQUENTLY PT MOVES SELF ALL OVER GURNEY AND ATTEMPTS TO HAVE LEGS OVER SIDE RAILS. VSS, WILL CONTINUE TO MONITOR AND TREAT UNTIL CHANGE OF SHIFT.
--- NOTE | 2022-09-04 20:58 | NUR ---
PT'S IV INFUSION OF 1/2 NS STOPPED D/T VASCULAR RESISTENCE WITHIN THE CATH AND DESIRE FOR PT TO REMAIN CALM, SLEEP.
--- NOTE | 2022-09-04 22:30 | NUR ---
POWERGLIDE SEEMS PATENT; FLUSHES AND DRAWS. IVF RESTARTED.
--- NOTE | 2022-09-05 00:23 | NUR ---
PT REPOSITIONED IN BED AND BECAME MUCH MORE AGGRESSIVE, SHAKING FIST AND SEEMINGLY TRING TO STRIKE OUT AT NURSING STAFF. PT TOLD THIS IS UNACCEPTABLE AND INAPPROPRIATE BEHAVIOR AND WE WILL BE CONTINUING THE SOFT RESTRAINTS FOR HIS SAFETY AND OURS. DENIES PAIN.
--- NOTE | 2022-09-05 03:19 | NUR ---
IVF PAUSED DISTAL OCCLUSIONS CONTINUE TO ALARM. WILL RESTART ONCE PATIENT A LITTLE CALMER
[2022-09-05 04:15] LABS: BASOPHILS ABSOLUTE AUTO 0.04 K/mm3 (0.00-0.23); BASOPHILS PERCENT AUTO 1 % (0-2); EOSINOPHILS ABSOLUTE AUTO 0.19 K/mm3 (0.00-0.68); EOSINOPHILS PERCENT AUTO 2 % (0-6); Hemoglobin 9.1 g/dL (13.5-17.5); IMMATURE GRAN ABSOLUTE AUTO 0.07 K/mm3 (0.00-0.10); IMMATURE GRAN PERCENT AUTO 1 % (0-1); LYMPHOCYTES ABSOLUTE AUTO 1.45 K/mm3 (0.84-5.20); LYMPHOCYTES PERCENT AUTO 17 % (21-46); MONOCYTES ABSOLUTE AUTO 0.84 K/mm3 (0.16-1.47); MONOCYTES PERCENT AUTO 10 % (4-13); Mean Corpuscular HGB 27.9 pg (26.0-34.0); Mean Corpuscular HGB Conc 32.5 g/dL (31.5-36.5); Mean Corpuscular Volume 86 fL (80-100); Mean Platelet Volume 8.7 fL (9.1-12.4); NEUTROPHILS ABSOLUTE AUTO 5.88 K/mm3 (1.96-9.15); NEUTROPHILS PERCENT AUTO 70 % (41-73); Platelet Count 212 K/mm3 (150-400); RDW Coefficient Variation 16.5 % (11.7-14.2); RDW Standard Deviation 50.4 fL (35.1-46.3); Red Blood Cell Count 3.26 M/mm3 (4.30-5.90); White Blood Cell Count 8.47 K/mm3 (4.00-11.30)
[2022-09-05 04:37] LABS: Anion Gap 6 mmol/L (6-16); CO2, Blood 24 mmol/L (21-32); Chloride, Blood 113 mmol/L (98-108); Glucose, Blood 110 mg/dL (70-99); Magnesium, Blood 1.9 mg/dL (1.6-2.4); Potassium, Blood 3.3 mmol/L (3.5-5.5); Sodium, Blood 143 mmol/L (136-145)
[2022-09-05 04:38] LABS: Albumin, Blood 2.6 g/dL (3.4-5.0); Blood Urea Nitrogen 11 mg/dL (8-24); Bun/Creatinine Ratio 11.4 (12.0-20.0); Calcium, Blood 7.8 mg/dL (8.5-10.1); Creatinine, Blood 0.96 mg/dL (0.60-1.20); Glomerular Filtration Rate 80 (60-); Phosphorus, Blood 3.3 mg/dL (2.5-4.9)
--- NOTE | 2022-09-05 06:30 | NUR ---
SHIFT SUMMARY: This author assumed patient cares from . *Please see interval notes* Overall: he is disoriented to all but self. Frequently attempted reorientation. Patient has trouble communicating. He has been intermittently agitated, and at times pleasant and laughing. Constant movement. Tries to get out of restraints and made one very aggressive movement towards staff while repositioning. He was given his HS Seroquel, and it did seem effective for a short while. Remains in soft restraints BUE. He was febrile at start of shift, given Tylenol. Now temp 98.5F at last check. On room air satting in low 90s. LS clear. Demonstrates good strength in all extremities. No new skin issues noted. Frequently repositioned and boosted as allowed. Condom cath has done well although patient tries to pull it off. No BM this shift. RUE powerglide is positional and author had some difficulty with IV fluid infusion. He got ~720 mL total. Will continue to monitor.
--- NOTE | 2022-09-05 08:46 | NUR ---
Am note Pt responding to verbal stimuli, answering yes/no questions, oriented to self. Pt following some/most directions, leopoldo. Repositioned to left side. Discussed Restraints with Dr Scherer this am, new order to continue ble soft wrist restraints. Pt denies pain, chest pain/pressure, sob, nausea, dizziness and numb/tingling. Bp and hr stable. Spo2 >90% on ra, breathing even and unlabored. Abd soft, nontender. No edema noted. Pt calm and cooperative with care with constant verbal direction. Will continue to monitor.
--- NOTE | 2022-09-05 16:29 | NUR ---
Shift Summary Pt continues to wake to verbal stimuli, quickly falling back to sleep. Repositioned patient t/o shift. Pt receiving iv potassium chloride. Vss. No other acute changes noted. Will continue to monitor until report given to oncoming rn.
--- NOTE | 2022-09-05 17:29 | NUR ---
Pt has not voided during shift, when asked pt nods yes that he needs to pee, no urine at this time, bladder scan completed >375CC, notified Dr Jacques, new order for straight cath q6 if >350CC.
[2022-09-05 17:54] LABS: Source, Urine Straight Cath
[2022-09-05 18:09] LABS: Appearance, Urine Hazy (Clear); Bilirubin, Urine Neg (Neg); Blood, Urine 3+ (Neg); Color, Urine Yellow (P-Yellow); Glucose Qualitative, Urine Neg (Neg); Ketones, Urine 3+ (Neg); Leukocyte Esterase, Urine 2+ (Neg); Nitrite, Urine Pos (Neg); Protein, Urine Neg (Neg); Urobilinogen, Urine NORM (Normal)
[2022-09-05 18:58] LABS: Bacteria Many /hpf; Squamous Epithelial Cells Rare /hpf (Few); White Blood Cells, Urine 50-100 /hpf (0-5)
--- NOTE | 2022-09-05 20:45 | NUR ---
ASSESSMENT/ASSUMED CARE PT SLEEPING, RESP EVEN AND NONLABORED. LUNGS CLEAR ON ROOMAIR. HEART RATE PACED AT TIMES. BP STABLE. ATTENDS CD&I. BT+ ABD SOFT AND NONTENDER. TEMP 101.3. PT WILL BE RECEIVING TYLENOL. POWER GLIDE TO RIGHT UPPER ARM WITH 1/2 NS AT 100 ML/HR. BED ALARM ON.
--- NOTE | 2022-09-05 21:16 | NUR ---
TEMP 101.3, MED WITH TYLENOL SD.
--- NOTE | 2022-09-06 05:11 | NUR ---
SHIFT SUMMARY PT RESTING QUIETLY DURING THE NIGHT. AWAKENS TO VERBAL STIMULI, THAN BACK TO SLEEP QUICKLY. FOLLOWING SIMPLE INSTRUCTIONS. TURNED Q2HRS. VSS. BLADDER SCAN FOR 474 ML. STRAIGHT CATH DONE FOR 600 ML. TEMP 101.3, MED WITH TYLENOL VA WITH GOOD RESULTS. BED ALARM ON. REPORT TO ON COMING NURSE
[2022-09-06 06:40] LABS: Source, Urine Foley catheter
[2022-09-06 06:55] LABS: Appearance, Urine Hazy (Clear); Bilirubin, Urine Neg (Neg); Blood, Urine 3+ (Neg); Color, Urine Yellow (P-Yellow); Glucose Qualitative, Urine Neg (Neg); Ketones, Urine 3+ (Neg); Leukocyte Esterase, Urine 3+ (Neg); Nitrite, Urine Pos (Neg); Protein, Urine 1+ (Neg); Urobilinogen, Urine NORM (Normal)
[2022-09-06 07:11] LABS: White Blood Cells, Urine 50-100 /hpf (0-5)
[2022-09-06 07:12] LABS: Squamous Epithelial Cells Rare /hpf (Few)
[2022-09-06 07:13] LABS: Bacteria Many /hpf
[2022-09-06 07:14] LABS: Mucus Light (0-Heavy)
[2022-09-06 07:15] LABS: Transitional Epithelial Cells Rare /hpf (0-Rare)
[2022-09-06 08:41] LABS: BASOPHILS ABSOLUTE AUTO 0.04 K/mm3 (0.00-0.23); BASOPHILS PERCENT AUTO 1 % (0-2); EOSINOPHILS ABSOLUTE AUTO 0.18 K/mm3 (0.00-0.68); EOSINOPHILS PERCENT AUTO 3 % (0-6); Hematocrit 30.5 % (37.0-53.0); Hemoglobin 9.8 g/dL (13.5-17.5); IMMATURE GRAN ABSOLUTE AUTO 0.05 K/mm3 (0.00-0.10); IMMATURE GRAN PERCENT AUTO 1 % (0-1); LYMPHOCYTES ABSOLUTE AUTO 0.99 K/mm3 (0.84-5.20); LYMPHOCYTES PERCENT AUTO 14 % (21-46); MONOCYTES ABSOLUTE AUTO 0.56 K/mm3 (0.16-1.47); MONOCYTES PERCENT AUTO 8 % (4-13); Mean Corpuscular HGB 27.9 pg (26.0-34.0); Mean Corpuscular HGB Conc 32.1 g/dL (31.5-36.5); Mean Corpuscular Volume 87 fL (80-100); Mean Platelet Volume 8.5 fL (9.1-12.4); NEUTROPHILS ABSOLUTE AUTO 5.43 K/mm3 (1.96-9.15); NEUTROPHILS PERCENT AUTO 75 % (41-73); Platelet Count 209 K/mm3 (150-400); RDW Coefficient Variation 16.5 % (11.7-14.2); RDW Standard Deviation 51.5 fL (35.1-46.3); Red Blood Cell Count 3.51 M/mm3 (4.30-5.90); White Blood Cell Count 7.25 K/mm3 (4.00-11.30)
[2022-09-06 09:00] LABS: Bun/Creatinine Ratio 12.2 (12.0-20.0); Calcium, Blood 7.8 mg/dL (8.5-10.1); Creatinine, Blood 0.91 mg/dL (0.60-1.20); Potassium, Blood 3.7 mmol/L (3.5-5.5)
--- NOTE | 2022-09-06 10:03 | NUR ---
Am note Pt alert, oriented to self and family, unsure of date/time, place and event. Pt denies pain, chest pain/pressure, sob, nausea, dizziness and numb/tingling. Pt bp and hr stable. Spo2 >90% on ra, breathing even and unlabored. Abd soft nontender. Up with 1-2 person assist to bsc and chair. Campo patent and draining. Other vss, afebrile. No other acute changes noted. Will continue to monitor.
--- NOTE | 2022-09-06 17:08 | NUR ---
Transfer note Report given to RN assuming care of patient. No acute changes t/o shift. VSS, tempurature trending up, noitifed rn assuming care of patient. Pt left room via bed at 1709.
--- NOTE | 2022-09-06 17:35 | NUR ---
U TRANSFER 2421 RECEIVED REPORT FROM GINO ACOSTA.
--- NOTE | 2022-09-06 17:36 | NUR ---
RECEIVED TRANSFER 1720: RECEIVED PT FROM PCU VIA BED TRANSFER. MADE COMFORTABLE, ORIENTED TO ROOM & UNIT ROUTINE.
--- NOTE | 2022-09-06 23:18 | NUR ---
PT STATUS PT IS CONFUSED. HE IS SAYING THAT HE NEEDS TO LEAVE AND GO GET TO HIS OWN BED. UNABLE TO REDIRECT. HE HAS TRIED TO EXIT BED. BED ALARM IS ON. I AM SEATED OUTSIDE HIS ROOM. PRN MEDICATION GIVEN
--- NOTE | 2022-09-07 03:17 | NUR ---
PT STATUS PRN ANXIETY MEDICATION GIVEN. PT IS WIDE AWAKE AND CALLING FOR A DOG. PT ATTEMPTING TO EXIT BED FREQUENTLY. HE IS HALLUCINATING. LABILE MOOD. ANGRY AND CONFUSED VS. CALM AND CONFUSED.
--- NOTE | 2022-09-07 04:13 | NUR ---
SHIFT SUMMARY ADMITTED FOR ANEMIA/GI BLEED. FULL CODE. GI HAS SIGNED OFF. IV FLUIDS INFUSING. PHYSICAL & OT ASSISTING. POWERGLIDE IN RUE. AWAITING PLACEMENT. PT HAS BEEN AGITATED, RESTLESS AND CONFUSED THROUGHOUT THE SHIFT. PRN ANXIETY MEDICATION GIVEN, SEE EMAR. SOLIMAN IN PLACE FOR RETENTION.
[2022-09-07 06:40] LABS: BASOPHILS ABSOLUTE AUTO 0.03 K/mm3 (0.00-0.23); BASOPHILS PERCENT AUTO 0 % (0-2); EOSINOPHILS ABSOLUTE AUTO 0.16 K/mm3 (0.00-0.68); EOSINOPHILS PERCENT AUTO 2 % (0-6); Hematocrit 26.4 % (37.0-53.0); Hemoglobin 8.7 g/dL (13.5-17.5); IMMATURE GRAN ABSOLUTE AUTO 0.05 K/mm3 (0.00-0.10); IMMATURE GRAN PERCENT AUTO 1 % (0-1); LYMPHOCYTES ABSOLUTE AUTO 1.49 K/mm3 (0.84-5.20); LYMPHOCYTES PERCENT AUTO 19 % (21-46); MONOCYTES ABSOLUTE AUTO 0.79 K/mm3 (0.16-1.47); MONOCYTES PERCENT AUTO 10 % (4-13); Mean Corpuscular HGB 27.8 pg (26.0-34.0); Mean Corpuscular Volume 84 fL (80-100); Mean Platelet Volume 8.8 fL (9.1-12.4); NEUTROPHILS ABSOLUTE AUTO 5.34 K/mm3 (1.96-9.15); NEUTROPHILS PERCENT AUTO 68 % (41-73); Platelet Count 221 K/mm3 (150-400); RDW Coefficient Variation 16.3 % (11.7-14.2); RDW Standard Deviation 48.4 fL (35.1-46.3); Red Blood Cell Count 3.13 M/mm3 (4.30-5.90); White Blood Cell Count 7.86 K/mm3 (4.00-11.30)
[2022-09-07 06:48] LABS: Bun/Creatinine Ratio 10.4 (12.0-20.0); Creatinine, Blood 1.15 mg/dL (0.60-1.20); Potassium, Blood 3.6 mmol/L (3.5-5.5)
--- NOTE | 2022-09-07 10:51 | NUR ---
RN NOTE MR GARNETT HAS BEEN CALM AND SLEEPING MOST OF THIS SHIFT. IVF CONTINUE TO RUE POWERGLIDE AND SOLIMAN CATHETER WITH LARGE VOLUME CLEAR YELLOW URINE. DISCUSSED WITH DR HERNANDEZ THIS AM WHETHER SOLIMAN CAN BE REMOVED, HE WILL REVIEW AND LET ME KNOW IF I CAN REMOVE IT. FAMILY AT BEDSIDE. REPORT FROM NIGHT RN THAT PT DID NOT SLEEP WELL, SO TRYING TO ALLOW HIM TO REST THIS AM. BED LOW. CALL LIGHT IN REACH.
--- NOTE | 2022-09-07 17:55 | NUR ---
SHIFT SUMMARY MR CONTRERAS SLEPT MOST OF THE EARLIER PART OF THE SHIFT. HE WOKE UP MID AFTERNOON, WAS CALM, FOLLOWED INSTRUCTIONS, ORIENTATED TO SELF AND "HOSPITAL". HE WALKED IN THE HALLS WITH PT AND IS NOW SITTING UP IN THE CHAIR AND CALMLY EATING SUPPER. HE STILL HAS SOLIMAN CATHETER IN PLACE AND IVF AT 100CC/HR. NO C/O PAIN, CALLED DR HERNANDEZ THIS EVENING TO DISCUSS SOLIMAN PLACEMENT AGAIN - HE WILL F/U TOMORROW TO SEE IF IT CAN BE REMOVED. PT HAS NO C/O PAIN/RESP DIFFICULTIES. CALL LIGHT IN REACH.
[2022-09-07 18:00] LABS: Influenza A, PCR NEGATIVE (NEGATIVE); Influenza B, PCR NEGATIVE (NEGATIVE); Resp Syncytial Virus, PCR NEGATIVE (NEGATIVE); SARS-Cov-2 (COVID-19) PCR, MMC NEGATIVE (NEGATIVE)
[2022-09-07] MEDS ORDERED: AMLODIPINE BESY10 MG PO (20:39)
[2022-09-07] MEDS ORDERED: NITROGLYCERIN 0.1 MG TOP (20:40)
[2022-09-07] MEDS ORDERED: DULOXETINE HCL60 M1 PO (20:42)
[2022-09-07] MEDS ORDERED: DONEPEZIL HCL10 M1 PO (20:42)
[2022-09-07] MEDS ORDERED: TAMSULOSIN HCL0.4 M1 PO (20:43)
[2022-09-07] MEDS ORDERED: Ketoconazole15 GM TOP (20:44)
--- NOTE | 2022-09-08 04:07 | NUR ---
SHIFT SUMMARY 82 YR M ADMITTED ON 08/27/22 FOR SYNCOPE EPISODES. FULL CODE. NO ACUTE CHANGES THIS SHIFT. PT WAS UP IN CHAIR AT BEGINNING OF SHIFT AND THEN REQUESTED TO GO BACK TO BED AND WATCH TV. HE WAS PLEASANT AND COOPERATIVE AND TOOK HIS EVENING MEDS WHOLE WITH WATER. AFTER A COUPLE OF HOURS HE REQUESTED THE TV AND LIGHTS OFF AND HE HAS SLEPT FOR MOST OF THE REST OF THIS SHIFT. SOLIMAN IS PATENT AND DRAINING TO GRAVITY AND 1/2 NS IS INFUSING @ 100/HR.
--- NOTE | 2022-09-08 19:35 | NUR ---
SHIFT SUMMARY: PT A&O X2, CONFUSED, PEASANT AND COOPERATIVE. PT GOT UP WITHOUT HELP AND CAUSED POWERGLIDE TO INFLIRATED INTO HIS RUE. PT RECVIED KIKA SEROGREGGL, REASSESSED AND ATTEMPTED TO PLACED PPIV. DR. HERNANDEZ COMTACTED ON IV ACCESS AND DC'D IV ACCESS, FLUIDS, AND CHANGE IV ABX AND PROTONIX TO PO. PT HAD DECREASE IN AGITATION AND UP IN CHAIR FOR ALL MEALS. PT FAMILY AND AT BEDSIDE THROUGHOUT THE SHIFT. PT IN CHAIR WATCHING TV WITH CALL LIGHT WITHIN REACH.
--- NOTE | 2022-09-09 04:45 | NUR ---
SHIFT SUMMARY 82 YR m ADMITTED ON 08/27/22 FOR SYNCOPE EPISODES. FULL CODE. NO ACUTE CHANGES THIS SHIFT. PT GOT OUT OF BED IMPULSIVELY SEVERAL TIMES THIS SHIFT, BUT IT WAS ALWAYS TO GO TO THE BATHROOM. HE IS FAIRLY STEADY ON HIS FEET BUT A STAND BY ASSIST IS STILL NEEDED FOR SAFETY. HE IS VERY PLEASANT AND COOPERATIVE BUT IS STILL CONFUSED. AT ONE POINT HE WAS MEOWING LIKE A CAT AND VERBALIZED THAT THERE WERE 2 CATS IN HIS ROOM. HE ASKED ABOUT HIS AND HE GOT SAD WHEN HE WAS TOLD THAT SHE WENT HOME FOR THE NIGHT BUT HE SEEMED TO GET OVER IT RATHER QUICKLY. FOR THE MOST PART HE SLEPT WELL JUST WOKE UP CONFUSED SEVERAL TIMES AND DID NOT ASK FOR ASSISTANCE BEFORE GETTING UP.
--- NOTE | 2022-09-09 16:26 | NUR ---
SHIFT SUMMARY PT A&OX1-2. PT IS IMPULSIVE AND GETS UP QUICKLY. BED OR CHAIR ALARM ON. NO C/O PAIN OR SOB. PT HAS BEEN COOPERATIVE OF CARE. PHYSICAL THERAPY WORKED WITH PT TODAY AND HE WAS ABLE TO AMBULATE DOWN THE KABA AND BACK. AT BEDSIDE TODAY. PT BECAME MORE RESTLESS AFTER LEFT. PT VERBALIZED THAT HE WAS WAITING FOR HER HER TO COME BACK. PLAN IS FOR PT TO DC HOME TOMORROW WITH HOME HEALTH. BED IN LOWEST POSITION AND CALL LIGHT IN REACH.
--- NOTE | 2022-09-10 05:03 | NUR ---
BUILDING SUPERINTENDENT SUMMARY: A&Ox2-3. REQUIRED REPEATED REDIRECTING FOR MUCH OF THE SHIFT. ATTEMPED TO AND SUCCEEDED IN GETTING OUT OF BED SEVERAL TIMES DUE TO AUDITORY AND VISUAL HALLUCINATIONS. UP TO THE BATHROOM TO VOID AT LEAST SEVEN TIMES T/O SHIFT. AMBULATES TO BATHROOM WITH 1PA W/FWW&GB. ON CAMERA SURVEILLANCE AND BEGAN SHOWING SIGNS OF AGITATION AROUND 0200 EVERY TIME STAFF ENTERED ROOM. VSS. ANTICIPATE DC HOME 09/10/22. WILL REPORT TO ONCOMING RN.
[2022-09-10] MEDS ORDERED: ELIQUIS5 M2 PO (14:48)
[2022-09-10] MEDS ORDERED: Seroquel Xr50 MG PO (14:49)
[2022-09-10] MEDS ORDERED: SULTRIDS PO (14:49)
[2022-09-10 15:00] LABS: Hematocrit 28.9 % (37.0-53.0); Hemoglobin 9.2 g/dL (13.5-17.5)
--- NOTE | 2022-09-10 15:25 | NUR ---
PT DISCHARGE REVIEWED WITH AND PT. VERBALIZED UNDERSTANDING MEDS AND INSTRUCT. STATES WILL SOCCER COMMENTATOR MEDS PRESCRIBED. NO IV NO TELE. PT BEING DRESSED BY AIDE. SHE TO TAKE OUT. PT OUT AT 5774
== END 2022-09-10 15:42 | disposition home health service (06) | DRG 377 ==
LOC: ER 15:48 → ERHOLD 15:49 → ICUW 15:49 → ERHOLD 20:41 → ICUW 08-28 19:40 → PCU 08-31 06:10 → MEDS 09-06 17:13
PROVIDERS: Family Medicine; Internal Medicine; Nurse Practitioner Acute Care; Student in an Organized Health Care Education/Training Program; ADMIT Hospitalist
PROC: 30233N1 Transfusion of Nonautologous Red Blood Cells into Peripheral Vein, Percutaneous Approach (ICD-10-PCS; principal; 2022-08-27)
PROC: 30233N1 Transfusion of Nonautologous Red Blood Cells into Peripheral Vein, Percutaneous Approach (ICD-10-PCS; 2022-08-28)
PROC: 0DJ08ZZ Inspection of Upper Intestinal Tract, Via Natural or Artificial Opening Endoscopic (ICD-10-PCS; 2022-08-29)
DX: K92.1 Melena (principal); G93.41 Metabolic encephalopathy; D62 Acute posthemorrhagic anemia; E87.29 Other acidosis; F05 Delirium due to known physiological condition; N39.0 Urinary tract infection, site not specified; E87.0 Hyperosmolality and hypernatremia; I48.91 Unspecified atrial fibrillation; Z20.822 Contact with and (suspected) exposure to COVID-19; K44.9 Diaphragmatic hernia without obstruction or gangrene; F32.A Depression, unspecified; F41.9 Anxiety disorder, unspecified; M19.90 Unspecified osteoarthritis, unspecified site; D69.59 Other secondary thrombocytopenia; E78.5 Hyperlipidemia, unspecified; G47.00 Insomnia, unspecified; I49.5 Sick sinus syndrome; I25.10 Atherosclerotic heart disease of native coronary artery without angina pectoris; B95.61 Methicillin susceptible Staphylococcus aureus infection as the cause of diseases classified elsewhere; K21.9 Gastro-esophageal reflux disease without esophagitis; Z85.51 Personal history of malignant neoplasm of bladder; Z90.49 Acquired absence of other specified parts of digestive tract; Z90.89 Acquired absence of other organs; Z87.891 Personal history of nicotine dependence; Z98.890 Other specified postprocedural states; Z91.038 Other insect allergy status; Z91.030 Bee allergy status; Z91.040 Latex allergy status; Z91.048 Other nonmedicinal substance allergy status; Z79.82 Long term (current) use of aspirin; Z79.899 Other long term (current) drug therapy
CPT/HCPCS: 0241U; 36415; 36430; 51701; 51702; 51703; 70450; 71045; 80048; 80053; 80069; 81001; 82272; 82803; 83605; 83735; 84484; 85014; 85018; 85025; 85027; 85610; 85730; 86850; 86900; 86901; 86920; 86923; 87040; 87077; 87086; 87147; 87186; 93005; 93010; 96374; 97110; 97112; 97116; 97162; 97166; 97530; 97535; 99285-25; A9270; C1751; C9113; J0171; J0696; J1200; J1430; J1630; J2001; J2060; J2704; J3480; J7030; J7040; J7042; J7050; J7060; J7120; P9016